=== PATIENT | male | born 1960 | race Caucasian/White ===

== ENCOUNTER 2020-09-17 11:57 | Emergency (ER) | payer MEDICAID | END 2020-09-17 12:22 | disposition left against medical advice (07) | LOC: ER 11:57 | DX: R11.2 Nausea with vomiting, unspecified (principal); R94.31 Abnormal electrocardiogram [ECG] [EKG]; Z53.21 Procedure and treatment not carried out due to patient leaving prior to being seen by health care provider | CPT/HCPCS: 93005 ==

== ENCOUNTER 2022-01-14 10:49 | Inpatient (IN) | payer MEDICAID ==
[~2022-01-14] VITALS: Ht 185.4 cm; Wt 79.3 kg
[2022-01-14 13:45] LABS: Basophils # (auto) 0 10 ^3/uL (0-0.2); Basophils % (auto) 0.3 % (0.0-2.0); Eosinophils # (auto) 0.1 10 ^3/uL (0-0.8); Eosinophils % (auto) 0.7 % (0.0-7.0); Hematocrit 39.1 % (41.0-53.0); Hemoglobin 13.1 g/dL (13.5-17.5); Lymphocytes # (auto) 0.9 10 ^3/uL (0.4-5.4); Mean Corpuscular Hemoglobin 31.6 pg (28.0-32.0); Mean Corpuscular Hgb Conc. 33.5 g/dL (32.0-36.0); Mean Corpuscular Volume 94.5 fL (80.0-100.0); Monocytes # (auto) 1.1 10 ^3/uL (0-1.3); Monocytes % (auto) 10.9 % (0.0-12.0); Neutrophils # (auto) 7.8 10 ^3/uL (1.6-8.6); Neutrophils % (auto) 79.1 % (37.0-80.0); Red Blood Cells 4.14 10^6/uL (4.5-5.90); Red Cell Distribution Width 15.2 % (11.8-14.3); White Blood Cell 9.8 10^3/uL (4.4-10.8)
[2022-01-14] MEDS ORDERED: PIPERACILLIN-TAZOB 3.375GM 100 ML IV ONE (14:00)
[2022-01-14 14:12] LABS: Lactic Acid w/Reflex 2.7 mmol/L (0.4-2.0)
[2022-01-14] MEDS ORDERED: HYDROcodone-ACET 10/325MG TAB PO ONE (14:15)
[2022-01-14 15:48] LABS: Albumin 2.7 g/dL (3.4-5.0); Calcium 9.1 mg/dL (8.5-10.1); Potassium 4.4 mmol/L (3.5-5.1)
[2022-01-14 15:52] LABS: BUN/Creatinine Ratio 16.7; Bilirubin, Total 5.2 mg/dL (0.2-1.0); Total Protein 6.8 g/dL (6.4-8.2)
[2022-01-14] MEDS ORDERED: DOCUSATE SOD 100 MG CAP PO PRN (16:00)
[2022-01-14] MEDS ORDERED: SODIUM CHLORIDE 0.9% 1,000 ML IV ONE (16:00)
[2022-01-14] MEDS ORDERED: ACETAMINOPHEN 325 MG TAB PO PRN (16:00)
[2022-01-14] MEDS ORDERED: DEXTROSE (50%) 50ML SYRG IV PRN (16:30)
[2022-01-14] MEDS: ACCU-CHEK COMFORT CURVE STRIP VI SCH ×2 (17:53→22:59)
[2022-01-14] MEDS: InsuLIN REG 1unit/0.01ml Soln (100units/ml) SC SCH ×2 (18:01→23:01)
[2022-01-14] MEDS: HYDROcodone-ACET 5/325MG TAB PO PRN (22:48)
[2022-01-14] MEDS: PIPERACILLIN-TAZOB 3.375GM 100 ML IV SCH (22:48)
[2022-01-14 23:19] VITALS: BP 149/75
[2022-01-15] MEDS: VANCOMYCIN 1GM/250ML 250 ML IV SCH (01:30)
[2022-01-15 05:00] VITALS: BP 142/64
[2022-01-15] MEDS: ACCU-CHEK COMFORT CURVE STRIP VI SCH ×4 (05:57→21:36)
[2022-01-15] MEDS: InsuLIN REG 1unit/0.01ml Soln (100units/ml) SC SCH ×4 (06:14→21:40)
[2022-01-15] MEDS: PIPERACILLIN-TAZOB 3.375GM 100 ML IV SCH ×3 (06:16→21:36)
[2022-01-15] MEDS: HYDROcodone-ACET 5/325MG TAB PO PRN ×3 (06:17→21:44)
[2022-01-15 07:00] LABS: Basophils # (auto) 0 10 ^3/uL (0-0.2); Basophils % (auto) 0.2 % (0.0-2.0); Eosinophils # (auto) 0.1 10 ^3/uL (0-0.8); Eosinophils % (auto) 2.1 % (0.0-7.0); Hematocrit 34.1 % (41.0-53.0); Hemoglobin 11.7 g/dL (13.5-17.5); Lymphocytes # (auto) 0.7 10 ^3/uL (0.4-5.4); Lymphocytes % (auto) 10.5 % (10.0-50.0); Mean Corpuscular Hgb Conc. 34.2 g/dL (32.0-36.0); Mean Corpuscular Volume 93.5 fL (80.0-100.0); Monocytes # (auto) 0.9 10 ^3/uL (0-1.3); Monocytes % (auto) 13.1 % (0.0-12.0); Neutrophils # (auto) 5.1 10 ^3/uL (1.6-8.6); Neutrophils % (auto) 74.1 % (37.0-80.0); Red Blood Cells 3.65 10^6/uL (4.5-5.90); Red Cell Distribution Width 14.8 % (11.8-14.3); White Blood Cell 6.9 10^3/uL (4.4-10.8)
[2022-01-15 07:10] LABS: INR 1.34 (0.9-1.15); Partial Thromboplastin Time 47.5 sec (24.6-33.4)
[2022-01-15 07:13] LABS: Potassium 4.3 mmol/L (3.5-5.1)
[2022-01-15 07:26] LABS: Albumin 1.9 g/dL (3.4-5.0); BUN/Creatinine Ratio 20.8; Bilirubin, Total 3.2 mg/dL (0.2-1.0); Calcium 8.5 mg/dL (8.5-10.1); Total Protein 5.2 g/dL (6.4-8.2)
[2022-01-15 09:00] VITALS: BP 102/57
[2022-01-15 13:00] VITALS: BP 117/61
[2022-01-15] MEDS ORDERED: VANCOMYCIN PER PHARMACY 0 MG IV SCH (17:00)
[2022-01-15 17:07] VITALS: BP 129/68
[2022-01-15] MEDS ORDERED: VANCOMYCIN 1GM/250ML 250 ML IV ONE (17:30)
[2022-01-15 22:00] VITALS: BP 124/64
[2022-01-16] VITALS (7 sets, daily range): BP systolic 118–127; BP diastolic 65–71
[2022-01-16] MEDS: VANCOMYCIN 1GM/250ML 250 ML IV SCH ×3 (05:25→17:49)
[2022-01-16] MEDS: HYDROcodone-ACET 5/325MG TAB PO PRN ×2 (05:26→18:36)
[2022-01-16] MEDS: InsuLIN REG 1unit/0.01ml Soln (100units/ml) SC SCH ×4 (06:51→22:14)
[2022-01-16] MEDS: ACCU-CHEK COMFORT CURVE STRIP VI SCH ×4 (06:51→22:13)
[2022-01-16] MEDS: PIPERACILLIN-TAZOB 3.375GM 100 ML IV SCH ×3 (07:41→22:13)
[2022-01-16] MEDS ORDERED: INSULIN LANTUS (GLARGINE) 1 /0.01ml (100units/ml) SC ONE ×2 (13:00)
[2022-01-16] MEDS ORDERED: INSULIN LANTUS (GLARGINE) 1 /0.01ml (100units/ml) SC SCH (22:00)
[2022-01-16] MEDS: INSULIN LANTUS (GLARGINE) 1 /0.01ml (100units/ml) SC SCH (22:14)
[2022-01-17] MEDS: VANCOMYCIN 1GM/250ML 250 ML IV SCH ×2 (01:40→05:21)
[2022-01-17] MEDS: HYDROcodone-ACET 5/325MG TAB PO PRN (01:48)
[2022-01-17 04:45] VITALS: BP 112/58
[2022-01-17 06:00] LABS: Basophils # (auto) 0 10 ^3/uL (0-0.2); Basophils % (auto) 0.3 % (0.0-2.0); Eosinophils # (auto) 0.3 10 ^3/uL (0-0.8); Eosinophils % (auto) 6.3 % (0.0-7.0); Hematocrit 32.7 % (41.0-53.0); Hemoglobin 11.4 g/dL (13.5-17.5); Lymphocytes # (auto) 0.7 10 ^3/uL (0.4-5.4); Lymphocytes % (auto) 12.8 % (10.0-50.0); Mean Corpuscular Hemoglobin 32.2 pg (28.0-32.0); Mean Corpuscular Hgb Conc. 34.8 g/dL (32.0-36.0); Mean Corpuscular Volume 92.6 fL (80.0-100.0); Monocytes # (auto) 0.6 10 ^3/uL (0-1.3); Monocytes % (auto) 10.9 % (0.0-12.0); Neutrophils # (auto) 3.6 10 ^3/uL (1.6-8.6); Neutrophils % (auto) 69.7 % (37.0-80.0); Nucleated Red Blood Cells % 0.1 %; Red Blood Cells 3.53 10^6/uL (4.5-5.90); Red Cell Distribution Width 14.9 % (11.8-14.3); White Blood Cell 5.2 10^3/uL (4.4-10.8)
[2022-01-17] MEDS: PIPERACILLIN-TAZOB 3.375GM 100 ML IV SCH ×2 (06:06→14:00)
[2022-01-17] MEDS: ACCU-CHEK COMFORT CURVE STRIP VI SCH ×4 (06:11→23:05)
[2022-01-17] MEDS: InsuLIN REG 1unit/0.01ml Soln (100units/ml) SC SCH ×4 (06:13→23:03)
[2022-01-17 06:16] LABS: BUN/Creatinine Ratio 16.3; Calcium 7.8 mg/dL (8.5-10.1); Potassium 3.7 mmol/L (3.5-5.1)
[2022-01-17 06:42] LABS: Urine Bacteria NONE SEEN /hpf (None Seen); Urine Blood Negative /uL (Negative); Urine Specific Gravity 1.034 (1.001-1.035); Urine WBC 2 /hpf (0 - 3)
[2022-01-17 08:00] VITALS: BP 124/71
[2022-01-17 09:00] VITALS: BP 124/71
[2022-01-17] MEDS ORDERED: TOBRAMYCIN IV SCH (09:45)
[2022-01-17] MEDS: INSULIN LANTUS (GLARGINE) 1 /0.01ml (100units/ml) SC SCH ×2 (10:00→23:04)
[2022-01-17] MEDS ORDERED: ROCURONIUM 10MG/ML 10ML VIAL IV ONE (12:00)
[2022-01-17] MEDS ORDERED: fentaNYL CITRATE 100 MCG/2 ML VL ONE (12:00)
[2022-01-17] MEDS ORDERED: MIDAZOLAM HCL 2MG/2ML 2ml VIAL (1mg/ml) ONE (12:00)
[2022-01-17] MEDS ORDERED: ceFAZolin 1GM/50ML 100 ML IV ONE (12:29)
[2022-01-17] MEDS ORDERED: TOBRAMYCIN SULFATE 40 MG/ML 2ML VIAL IV ONE ×2 (12:30→12:45)
[2022-01-17] MEDS ORDERED: VANCOMYCIN HCL 1000 MG VL ONE (12:44)
[2022-01-17 13:00] VITALS: BP 118/68
[2022-01-17] MEDS ORDERED: HYDROmorphone HCL 2 MG/ML VL/or syr IV PRN ×2 (14:00)
[2022-01-17] MEDS ORDERED: ONDANSETRON HCL 4 MG/2 ML VIAL IV PRN (14:00)
[2022-01-17] MEDS ORDERED: ONDANSETRON HCL 4 MG/2 ML VIAL ONE (14:16)
[2022-01-17] MEDS ORDERED: PROPOFOL 10 MG/ML 20 ML IV ONE (14:16)
[2022-01-17] MEDS ORDERED: oxyCODONE HCL 5MG TAB PO PRN (14:45)
[2022-01-17] MEDS: D5W/LACTATED RINGERS 1,000 ML IV SCH (14:45)
[2022-01-17] MEDS ORDERED: HYDROmorphone HCL 2 MG/ML VL/or syr ONE (14:47)
[2022-01-17] MEDS ORDERED: LIDOCAINE 1% (LOCAL ANESTH.) PF 5ml SDV ONE (14:51)
[2022-01-17 17:00] VITALS: BP 134/78
[2022-01-17] MEDS: oxyCODONE HCL 5MG TAB PO PRN ×2 (17:35→23:11)
[2022-01-17] MEDS ORDERED: VANCOMYCIN 1GM/250ML 250 ML IV SCH (19:00)
[2022-01-17 22:03] VITALS: BP 125/68
[2022-01-17] MEDS: ceFAZolin 2 GM in D5W 5% 100 ML IV SCH (22:58)
[2022-01-17] MEDS: PREGABALIN 25 MG CAP PO SCH (23:04)
[2022-01-18] MEDS: D5W/LACTATED RINGERS 1,000 ML IV SCH ×3 (01:13→21:35)
[2022-01-18 02:39] LABS: BUN/Creatinine Ratio 14.5; Calcium 8.7 mg/dL (8.5-10.1); Potassium 4.2 mmol/L (3.5-5.1)
[2022-01-18] MEDS: oxyCODONE HCL 5MG TAB PO PRN ×2 (03:52→22:57)
[2022-01-18 04:51] VITALS: BP 129/70
[2022-01-18] MEDS: ceFAZolin 2 GM in D5W 5% 100 ML IV SCH ×3 (06:04→21:35)
[2022-01-18] MEDS: ACCU-CHEK COMFORT CURVE STRIP VI SCH ×4 (06:28→21:36)
[2022-01-18] MEDS: InsuLIN REG 1unit/0.01ml Soln (100units/ml) SC SCH ×4 (06:34→21:56)
[2022-01-18 08:00] VITALS: BP 119/67
[2022-01-18] MEDS: PREGABALIN 25 MG CAP PO SCH ×2 (09:47→21:36)
[2022-01-18] MEDS: INSULIN LANTUS (GLARGINE) 1 /0.01ml (100units/ml) SC SCH ×2 (09:51→21:57)
[2022-01-18 09:59] VITALS: BP 119/67
[2022-01-18 12:06] LABS: INR 1.31 (0.9-1.15); Partial Thromboplastin Time 43.9 sec (24.6-33.4)
[2022-01-18 13:14] VITALS: BP 120/65
[2022-01-18 17:00] VITALS: BP 109/73
[2022-01-18] MEDS ORDERED: LIDOCAINE 1% (LOCAL ANESTH.) PF 5ml SDV ID ONE (18:30)
[2022-01-18] MEDS: APIXABAN 2.5 MG TAB PO SCH (21:36)
[2022-01-18] MEDS: SODIUM CHLOR 0.9% PF (SALINE LOCK) 10ML VIAL/SYR IV SCH (21:36)
[2022-01-18 22:00] VITALS: BP 128/67
[2022-01-19 05:00] VITALS: BP 121/66
[2022-01-19] MEDS: ceFAZolin 2 GM in D5W 5% 100 ML IV SCH ×3 (05:26→21:25)
[2022-01-19] MEDS: oxyCODONE HCL 5MG TAB PO PRN ×3 (05:27→15:37)
[2022-01-19] MEDS: ACCU-CHEK COMFORT CURVE STRIP VI SCH ×4 (06:31→21:27)
[2022-01-19] MEDS: InsuLIN REG 1unit/0.01ml Soln (100units/ml) SC SCH ×4 (06:34→21:26)
[2022-01-19 08:36] VITALS: BP 123/61
[2022-01-19] MEDS: D5W/LACTATED RINGERS 1,000 ML IV SCH ×2 (09:37→16:45)
[2022-01-19] MEDS: APIXABAN 2.5 MG TAB PO SCH ×2 (10:06→21:25)
[2022-01-19] MEDS: SODIUM CHLOR 0.9% PF (SALINE LOCK) 10ML VIAL/SYR IV SCH ×2 (10:06→21:25)
[2022-01-19] MEDS: PREGABALIN 25 MG CAP PO SCH ×2 (10:06→21:25)
[2022-01-19] MEDS: INSULIN LANTUS (GLARGINE) 1 /0.01ml (100units/ml) SC SCH ×2 (10:07→21:26)
[2022-01-19 12:18] VITALS: BP 109/64
[2022-01-19 22:00] VITALS: BP 129/71
[2022-01-20] VITALS (7 sets, daily range): BP systolic 113–143; BP diastolic 59–90
[2022-01-20] MEDS: oxyCODONE HCL 5MG TAB PO PRN ×4 (02:33→23:34)
[2022-01-20] MEDS: D5W/LACTATED RINGERS 1,000 ML IV SCH ×3 (02:37→23:41)
[2022-01-20] MEDS: ceFAZolin 2 GM in D5W 5% 100 ML IV SCH ×3 (06:00→23:42)
[2022-01-20] MEDS: InsuLIN REG 1unit/0.01ml Soln (100units/ml) SC SCH ×3 (06:17→18:11)
[2022-01-20] MEDS: ACCU-CHEK COMFORT CURVE STRIP VI SCH ×4 (06:21→23:41)
[2022-01-20] MEDS: APIXABAN 2.5 MG TAB PO SCH ×2 (10:39→23:40)
[2022-01-20] MEDS: PREGABALIN 25 MG CAP PO SCH ×2 (10:39→23:39)
[2022-01-20] MEDS: SODIUM CHLOR 0.9% PF (SALINE LOCK) 10ML VIAL/SYR IV SCH ×2 (10:39→23:42)
[2022-01-20] MEDS: INSULIN LANTUS (GLARGINE) 1 /0.01ml (100units/ml) SC SCH (10:44)
[2022-01-20] MEDS: POLYETHYLENE GLYCOL 17 GM PWDR PO PRN (11:08)
[2022-01-21] MEDS: InsuLIN REG 1unit/0.01ml Soln (100units/ml) SC SCH ×5 (00:08→21:55)
[2022-01-21] MEDS: INSULIN LANTUS (GLARGINE) 1 /0.01ml (100units/ml) SC SCH ×3 (00:09→21:54)
[2022-01-21] MEDS: oxyCODONE HCL 5MG TAB PO PRN ×2 (04:24→11:53)
[2022-01-21 05:00] VITALS: BP 128/61
[2022-01-21] MEDS: ceFAZolin 2 GM in D5W 5% 100 ML IV SCH ×3 (06:41→21:52)
[2022-01-21] MEDS: ACCU-CHEK COMFORT CURVE STRIP VI SCH ×4 (06:41→21:53)
[2022-01-21] MEDS: D5W/LACTATED RINGERS 1,000 ML IV SCH ×2 (08:45→21:52)
[2022-01-21 09:00] VITALS: BP 124/70
[2022-01-21] MEDS: SODIUM CHLOR 0.9% PF (SALINE LOCK) 10ML VIAL/SYR IV SCH ×2 (09:51→21:52)
[2022-01-21] MEDS: APIXABAN 2.5 MG TAB PO SCH ×2 (09:53→21:52)
[2022-01-21] MEDS: PREGABALIN 25 MG CAP PO SCH ×2 (09:53→21:52)
[2022-01-21 13:00] VITALS: BP 121/69
[2022-01-21 17:00] VITALS: BP 134/83
[2022-01-21] MEDS: ONDANSETRON HCL 4 MG/2 ML VIAL IV PRN (21:55)
[2022-01-21 22:00] VITALS: BP 135/74
[2022-01-22 05:00] VITALS: BP 134/75
[2022-01-22] MEDS: D5W/LACTATED RINGERS 1,000 ML IV SCH ×2 (05:41→14:13)
[2022-01-22] MEDS: ceFAZolin 2 GM in D5W 5% 100 ML IV SCH ×3 (05:50→21:47)
[2022-01-22] MEDS: ACCU-CHEK COMFORT CURVE STRIP VI SCH ×4 (05:59→21:48)
[2022-01-22] MEDS: ONDANSETRON HCL 4 MG/2 ML VIAL IV PRN (06:02)
[2022-01-22] MEDS: InsuLIN REG 1unit/0.01ml Soln (100units/ml) SC SCH ×4 (06:02→21:48)
[2022-01-22 09:00] VITALS: BP 138/72
[2022-01-22] MEDS: SODIUM CHLOR 0.9% PF (SALINE LOCK) 10ML VIAL/SYR IV SCH ×2 (09:50→21:47)
[2022-01-22] MEDS: INSULIN LANTUS (GLARGINE) 1 /0.01ml (100units/ml) SC SCH ×2 (10:00→21:51)
[2022-01-22] MEDS: APIXABAN 2.5 MG TAB PO SCH ×2 (10:04→21:47)
[2022-01-22] MEDS: PREGABALIN 25 MG CAP PO SCH ×2 (10:04→21:47)
[2022-01-22] MEDS: oxyCODONE HCL 5MG TAB PO PRN ×2 (10:05→22:10)
[2022-01-22 13:00] VITALS: BP 119/67
[2022-01-22 17:08] VITALS: BP 110/62
[2022-01-22 20:00] VITALS: BP 113/74
[2022-01-22 22:00] VITALS: BP 113/74
[2022-01-23] MEDS: D5W/LACTATED RINGERS 1,000 ML IV SCH ×3 (01:12→23:14)
[2022-01-23 05:00] VITALS: BP 126/74
[2022-01-23] MEDS: ceFAZolin 2 GM in D5W 5% 100 ML IV SCH ×3 (06:02→23:01)
[2022-01-23] MEDS: POLYETHYLENE GLYCOL 17 GM PWDR PO PRN (06:33)
[2022-01-23] MEDS: ACCU-CHEK COMFORT CURVE STRIP VI SCH ×4 (06:33→23:01)
[2022-01-23] MEDS: InsuLIN REG 1unit/0.01ml Soln (100units/ml) SC SCH ×4 (06:38→22:00)
[2022-01-23] MEDS: oxyCODONE HCL 5MG TAB PO PRN ×2 (06:59→18:27)
[2022-01-23 09:00] VITALS: BP 120/78
[2022-01-23] MEDS: APIXABAN 2.5 MG TAB PO SCH ×2 (09:20→22:54)
[2022-01-23] MEDS: PREGABALIN 25 MG CAP PO SCH ×2 (09:20→22:54)
[2022-01-23] MEDS: SODIUM CHLOR 0.9% PF (SALINE LOCK) 10ML VIAL/SYR IV SCH ×2 (09:20→23:01)
[2022-01-23] MEDS: INSULIN LANTUS (GLARGINE) 1 /0.01ml (100units/ml) SC SCH ×2 (09:27→22:00)
[2022-01-23 13:00] VITALS: BP 125/66
[2022-01-23 17:19] VITALS: BP 132/70
[2022-01-23 20:00] VITALS: BP 103/54
[2022-01-23 20:05] LABS: BUN/Creatinine Ratio 11.4; Calcium 9.2 mg/dL (8.5-10.1); Potassium 3.5 mmol/L (3.5-5.1)
[2022-01-23 22:00] VITALS: BP 103/54
[2022-01-24 05:00] VITALS: BP 107/57
[2022-01-24] MEDS: ceFAZolin 2 GM in D5W 5% 100 ML IV SCH (06:23)
[2022-01-24] MEDS: ACCU-CHEK COMFORT CURVE STRIP VI SCH ×2 (06:34→11:18)
[2022-01-24] MEDS: InsuLIN REG 1unit/0.01ml Soln (100units/ml) SC SCH ×2 (06:35→11:24)
[2022-01-24] MEDS: D5W/LACTATED RINGERS 1,000 ML IV SCH (06:38)
[2022-01-24 08:46] VITALS: BP 120/70
[2022-01-24] MEDS: SODIUM CHLOR 0.9% PF (SALINE LOCK) 10ML VIAL/SYR IV SCH (09:01)
[2022-01-24] MEDS: INSULIN LANTUS (GLARGINE) 1 /0.01ml (100units/ml) SC SCH (09:19)
[2022-01-24] MEDS: APIXABAN 2.5 MG TAB PO SCH (09:20)
[2022-01-24] MEDS: PREGABALIN 25 MG CAP PO SCH (09:20)
[2022-01-24 13:17] VITALS: BP 120/70
[2022-01-25] MEDS ORDERED: Juven Fruit Punch Powder PACKET 28.8gm PO SCH (10:00)
== END 2022-01-24 15:20 | DRG 325 ==
LOC: ER 10:49 → OVERFLOW 16:25 → EAST 22:31
PROVIDERS: ADMIT Nurse Practitioner Family; ATTEND Internal Medicine
PROC: 0SUV09Z Supplement Right Knee Joint, Tibial Surface with Liner, Open Approach (ICD-10-PCS; 2022-01-17)
PROC: 3E0U029 Introduction of Other Anti-infective into Joints, Open Approach (ICD-10-PCS; 2022-01-17)
PROC: 0SPC09Z Removal of Liner from Right Knee Joint, Open Approach (ICD-10-PCS; principal; 2022-01-17 12:28)
PROC: 02HV33Z Insertion of Infusion Device into Superior Vena Cava, Percutaneous Approach (ICD-10-PCS; 2022-01-18)
DX: T84.53XA Infection and inflammatory reaction due to internal right knee prosthesis, initial encounter (principal); U07.1 COVID-19; R78.81 Bacteremia; L03.115 Cellulitis of right lower limb; T79.7XXA Traumatic subcutaneous emphysema, initial encounter; M00.9 Pyogenic arthritis, unspecified; I83.019 Varicose veins of right lower extremity with ulcer of unspecified site; E11.9 Type 2 diabetes mellitus without complications; B95.61 Methicillin susceptible Staphylococcus aureus infection as the cause of diseases classified elsewhere; I83.029 Varicose veins of left lower extremity with ulcer of unspecified site; I87.2 Venous insufficiency (chronic) (peripheral); Y83.8 Other surgical procedures as the cause of abnormal reaction of the patient, or of later complication, without mention of misadventure at the time of the procedure; Y92.89 Other specified places as the place of occurrence of the external cause; I73.9 Peripheral vascular disease, unspecified; Z79.4 Long term (current) use of insulin
CPT/HCPCS: 36415; 36569; 71045; 73562; 76942; 80048; 80053; 80202; 81001; 82962; 83036; 83605; 84550; 85025; 85610; 85652; 85730; 86141; 86850; 86900; 86901; 87040; 87075; 87077; 87081; 87186; 87205; 93306; 93971; 96361; 96365; 96372; 97110; 97116; 97163; 97530; C1729; G0378; J0690; J1815; J2250; J2405; J2543; J2704; J7060

== ENCOUNTER → 2022-07-01 | Outpatient (CLI) | payer MEDICAID ==
[2022-07-01 09:52] LABS: Basophils # (auto) 0.1 10 ^3/uL (0-0.2); Basophils % (auto) 2.3 % (0.0-2.0); Eosinophils # (auto) 0 10 ^3/uL (0-0.8); Hemoglobin 13.7 g/dL (13.5-17.5); Lymphocytes # (auto) 1.8 10 ^3/uL (0.4-5.4); Lymphocytes % (auto) 30.2 % (10.0-50.0); Mean Corpuscular Hemoglobin 32.3 pg (28.0-32.0); Mean Corpuscular Hgb Conc. 35.2 g/dL (32.0-36.0); Mean Corpuscular Volume 91.7 fL (80.0-100.0); Monocytes # (auto) 0.9 10 ^3/uL (0-1.3); Monocytes % (auto) 15.6 % (0.0-12.0); Neutrophils % (auto) 51.9 % (37.0-80.0); Nucleated Red Blood Cells % 0.1 %; Red Blood Cells 4.26 10^6/uL (4.5-5.90); Red Cell Distribution Width 15.7 % (11.8-14.3); White Blood Cell 5.9 10^3/uL (4.4-10.8)
[2022-07-01 10:07] LABS: Urine Bacteria NONE SEEN /hpf (None Seen); Urine Blood Negative /uL (Negative); Urine Mucus FEW (None Seen); Urine Specific Gravity 1.023 (1.001-1.035); Urine WBC 2 /hpf (0 - 3)
[2022-07-01 10:51] LABS: Albumin 3.2 g/dL (3.4-5.0); BUN/Creatinine Ratio 9.1; Calcium 9.5 mg/dL (8.5-10.1); Potassium 4.5 mmol/L (3.5-5.1); Total Protein 6.8 g/dL (6.4-8.2)
[2022-07-01 11:03] LABS: Bilirubin, Total 1.8 mg/dL (0.2-1.0)
[2022-07-01 11:04] LABS: Alcohol, Urine < 3.0 mg/dL (0-10); Amphetamine Screen, Urine POSITIVE (NEGATIVE); Barbiturate Scree,Urine NEGATIVE (NEGATIVE); Benzodiazephine Screen, Urine NEGATIVE (NEGATIVE); Cannabinoid Screen, Urine NEGATIVE (NEGATIVE); Cocaine Screen, Urine NEGATIVE (NEGATIVE); Opiate Scree,Urine NEGATIVE (NEGATIVE); Phencyclidine Screen, Urine NEGATIVE (NEGATIVE)
== END | disposition home or self-care (01) ==
LOC: LAB 08:58
PROVIDERS: ATTEND Internal Medicine
DX: K70.30 Alcoholic cirrhosis of liver without ascites (principal); E11.9 Type 2 diabetes mellitus without complications; E78.5 Hyperlipidemia, unspecified; D64.9 Anemia, unspecified
CPT/HCPCS: 36415; 80053; 80061; 80307; 81001; 82043; 85025